=== PATIENT | female | born 1980 | race Hispanic/Latino ===

== ENCOUNTER 2016-10-24 15:05 | Emergency (ER) ==
--- NOTE | 2016-10-24 15:20 | ED EKG INTERP ---
EKG Interpretation - EKG Time of EKG reading by physician:: 15:10 EKG Read and Signed by:: Arsalan Fung EKG Interpretation (*Must complete 3 of following elements*): Normal Rate: 79 Rhythm: NSR Attestation - Scribe Verification/Attestation Scribe:: Henrietta Reed Acting as Scribe for:: Arsalan Fung Scribe documention review:: This chart was documented by a scribe and accurately reflects the service the provider performed and the decisions made by the provider.
[2016-10-24] MEDS ORDERED: TORADOL IV ONE (15:28)
[2016-10-24] MEDS ORDERED: NS 1,000 ML IV ONE (15:28)
--- NOTE | 2016-10-24 15:32 | PROVIDER DOCUMENTATION ---
HPI-Syncope/Dizziness - General Chief Complaint: Syncope Stated Complaint: SYNCOPE Time Seen by Provider: 10/24/16 15:20 Source: patient, EMS Allergies/Adverse Reactions: Patient Allergies Allergy/AdvReac Type Severity Reaction Status Date / Time No Known Allergies Allergy Verified 10/24/16 15:32 Home Medications: Home Medication List Medication Instructions Recorded Confirmed Last Taken Type No Home Medications 10/24/16 10/24/16 Unknown History - History of Present Illness-Syncope/Dizzy Nature of Presenting Problem: Pt is a 36 yof who came to the ED with a cc of syncope. Pt reports she was working at the [employer] and had eaten lunch and went back to work when she felt a sharp pain in her chest. Pt reports she started breathing faster and the chest pain got worse and she became SOB. Pt reports she passed out after having SOB. Pt states that she is no longer having trouble breathing but her chest is still tight. Onset/Duration: reports: just prior to arrival Timing: reports: improving Position/Activity at time of episode: reports: standing Symptoms prior to episode: reports: lightheaded, chest pain Current Symptoms: reports: chest pain Recently Seen Here or By Another Healthcare Provider: No Review of Systems - Adult - REVIEW OF SYSTEMS - ADULT Constitutional: denies: chills, fever Eyes: reports: no symptoms reported Ears, Nose, Mouth & Throat: denies: epistaxis, loose teeth Cardiovascular: reports: chest pain, syncope. denies: heart murmur, orthopnea Respiratory: reports: shortness of breath. denies: chronic cough, cough, wheezing Gastrointestinal: reports: no symptoms reported Genitourinary: reports: no symptoms reported Musculoskeletal: reports: no symptoms reported Integumentary: reports: no symptoms reported Neurological: reports: no symptoms reported Psychiatric: reports: no symptoms reported Endocrine: reports: no symptoms reported Hematologic/Lymphatic: reports: no symptoms reported Allergic/Immunologic: reports: no symptoms reported All Other Systems: Reviewed and Negative Past History - Adult - PAST MEDICAL HISTORY-ADULT Review of Records: reports: Old Records Reviewed, Nursing Assessment Review Major Childhood Illnesses: reports: denies history Cardiovascular: reports: denies history Respiratory: reports: denies history Gastrointestinal: reports: denies history Obstetrical/Gynecological: reports: denies history Genitourinary: reports: denies history Musculoskeletal: reports: denies history Neurological: reports: denies history Endocrine/Immune: reports: denies history Other Conditions: reports: denies history - FAMILY HISTORY Family History: reviewed, not pertinent Physical Exam-General - PHYSICAL EXAM-ADULT Initial Vital Signs Reviewed: Yes - CONSTITUTIONAL General Appearance: appears well, alert - EYES Eyes: PERRL/EOMI, pink conjunctivae - HEAD, EARS, NOSE, MOUTH & THROAT HENMT: normocephalic/atraumatic, moist mucous membranes - NECK Neck: non-tender - RESPIRATORY Respiratory: lungs clear, normal breath sounds - CHEST (BREASTS) Chest/Breast: tenderness (Left chest wall anterior tenderness) - GASTROINTESTINAL (ABDOMEN) Abdominal Exam: normal bowel sounds, non tender - MUSCULOSKELETAL Back Exam: normal inspection Extremity: normal range of motion - SKIN Integumentary: normal color, normal turgor - NEUROLOGIC Neurologic: grossly normal - PSYCHIATRIC Psych/Mental Status: normal mood/affect, normal thought content, normal thought process, oriented x 3 Progress - PLAN OF CARE/RESULTS Progress/Plan/Lab Results: Vital Signs - 24 hr 10/24/16 15:21 Temperature 97.5 F L Pulse Rate 80 Respiratory 28 H Rate Blood Pressure 105/75 O2 Sat by Pulse 100 Oximetry Orders Category Date Time Status Finger Stick Blood Sugar (ED) DIRECTED Care 10/24/16 15:22 Active Orthostatic Vital Signs NOW Care 10/24/16 15:22 Active CBC WITH ELECTRONIC DIFF [HEME] Stat Lab 10/24/16 15:23 Uncollected COMPREHENSIVE METABOLIC PANEL [CHEM] Stat Lab 10/24/16 15:23 Uncollected TEST-URINE [PREG] Stat Lab 10/24/16 15:23 Uncollected URINALYSIS [URINALYSIS] Stat Lab 10/24/16 15:23 Uncollected 0.9% Sodium Chloride Inj [Ns] 1,000 ml Med 10/24/16 15:28 Active IV 999 mls/hr Ketorolac [Toradol] Med 10/24/16 15:28 Once 30 mg IV NOW ONE EKG [EKG] Stat Ther 10/24/16 15:22 Ordered Laboratory Tests 10/24/16 10/24/16 10/24/16 15:19 15:19 15:57 WBC 9.08 RBC 4.14 L Hgb 9.8 L Hct 31.3 L MCV 75.6 L MCH 23.7 L MCHC 31.3 L RDW Std Deviation 15.8 H Plt Count 308 MPV 12.1 H Immature Gran % (Auto) 0.0 Neut % (Auto) 80.3 H Lymph % (Auto) 14.5 L [place]dwell % (Auto) 4.3 Eos % (Auto) 0.7 Baso % (Auto) 0.2 Immature Gran # (Auto) 0.00 Neut # (Auto) 7.29 H Lymph # (Auto) 1.32 Caldwell # (Auto) 0.39 Eos # (Auto) 0.06 Baso # (Auto) 0.02 Sodium 139 Potassium 3.0 L Chloride 103 Carbon Dioxide 23 L Anion Gap 13 BUN 13 Creatinine 0.6 Estimated GFR/1.73 m2 > 60 BUN/Creatinine Ratio 22 Glucose 128 H Calculated Osmolality 279 Calcium 8.8 Total Bilirubin 0.30 AST 19 ALT 13 Alkaline Phosphatase 82 Total Protein 7.3 Albumin 4.3 Globulin 3.0 Albumin/Globulin Ratio 1.4 Urine Source Urine Color Urine Turbidity Urine pH Ur Specific Gardiner Urine Protein Ur Glucose (Stick) Ur Ketones (Stick) Urine Blood Urine Nitrite Urine Bilirubin Urobilinogen Dipstick Urine Leukocytes Urine WBC (Auto) Urine RBC (Auto) U Epithel Cells (Auto) Urine Bacteria (Auto) Urine Test NEGATIVE 10/24/16 15:57 WBC RBC Hgb Hct MCV MCH MCHC RDW Std Deviation Plt Count MPV Immature Gran % (Auto) Neut % (Auto) Lymph % (Auto) Caldwell % (Auto) Eos % (Auto) Baso % (Auto) Immature Gran # (Auto) Neut # (Auto) Lymph # (Auto) Caldwell # (Auto) Eos # (Auto) Baso # (Auto) Sodium Potassium Chloride Carbon Dioxide Anion Gap BUN Creatinine Estimated GFR/1.73 m2 BUN/Creatinine Ratio Glucose Calculated Osmolality Calcium Total Bilirubin AST ALT Alkaline Phosphatase Total Protein Albumin Globulin Albumin/Globulin Ratio Urine Source VOIDED Urine Color STRAW Urine Turbidity CLEAR Urine pH 8.0 Ur Specific [place] 1.010 Urine Protein NEGATIVE Ur Glucose (Stick) NEGATIVE Ur Ketones (Stick) NEGATIVE Urine Blood NEGATIVE Urine Nitrite NEGATIVE Urine Bilirubin NEGATIVE Urobilinogen Dipstick NORMAL Urine Leukocytes NEGATIVE Urine WBC (Auto) <10 Urine RBC (Auto) <10 U Epithel Cells (Auto) <10 Urine Bacteria (Auto) 1+ Urine Test Departure - Departure Time of Disposition Order: 17:26 DIAGNOSIS: Anxiety attack Syncope Qualifiers: Syncope type: unspecified Qualified Code(s): R55 - Syncope and collapse Disposition: HOME 01 Certified Medical Emergency: Emergent Condition: Good Additional Instructions: Off work for one day ED Follow Up Instructions: You have been treated by a care provider in the Emergency Department. These instructions are being provided to you so you can have an understanding of how to care for yourself upon discharge. Upon discharge from the Emergency Department, you are responsible for making arrangements for follow-up care by a physician of your choice. Take all prescribed medications as directed. Return to the Emergency Department immediately for any new or worsening symptoms. You may call the Physician Referral phone number at [phone] to obtain a list of Physicians who are taking new patients. Attestation - Scribe Verification/Attestation Scribe:: Henrietta Reed Acting as Scribe for:: Arsalan Fung Scribe documention review:: This chart was documented by a scribe and accurately reflects the service the provider performed and the decisions made by the provider.
[2016-10-24 15:37] LABS: MANUAL DIFF NEEDED? NO
[2016-10-24 15:49] LABS: BASO% 0.2 % (0.0-0.8); EOS# 0.06 X1000 (0.0-0.7); EOS% 0.7 % (0.0-10.0); HEMATOCRIT 31.3 % (37.0-47.0); HEMOGLOBIN 9.8 g/dL (12.0-16.0); LYMPH# 1.32 X1000 (1.2-3.4); LYMPH% 14.5 % (20.5-51.1); MCH 23.7 PG (27-31); MCHC 31.3 g/dL (33-37); MCV 75.6 FL (81-99); MONO# 0.39 X1000 (0.11-0.59); MONO% 4.3 % (1.7-9.3); MPV 12.1 FL (7.4-10.4); NEUT% 80.3 % (42.2-75.2); PLT 308 X1000 (130-400); RBC 4.14 XMIL (4.2-5.4)
[2016-10-24 16:00] LABS: AGAP 13; ALBUMIN 4.3 g/dL (3.5-5.0); ALKALINE PHOSPHATASE 82 U/L (32-104); BUN 13 mg/dL (8-22); CALCIUM 8.8 mg/dL (8.8-10.2); CHLORIDE 103 mmol/L (98-107); COSMO 279; GOT 19 U/L (10-30); GPT 13 U/L (10-36); SODIUM 139 mmol/L (136-145); TCO2 23 mmol/L (25-35); TOTAL PROTEIN 7.3 g/dL (6.3-8.3)
[2016-10-24 16:22] LABS: URINE MICRO REVIEW NEEDED? NO; URINE SOURCE VOIDED
[2016-10-24 16:34] LABS: BILIRUBIN URINE NEGATIVE (NEGATIVE); BLOOD URINE NEGATIVE (NEGATIVE); COLOR STRAW; GLUCOSE URINE NEGATIVE (NEGATIVE); LEUKOCYTES URINE NEGATIVE (NEGATIVE); NITRITE URINE NEGATIVE (NEGATIVE); PROTEIN URINE NEGATIVE (NEGATIVE); TURBIDITY URINE CLEAR (CLEAR); UROBILINOGEN URINE NORMAL (NORMAL)
[2016-10-24 16:35] LABS: UR EPITHELIAL CELLS <10 /HPF (<10); URINE BACTERIA 1+ /HPF; URINE RBC <10 /HPF (<10); URINE WBC <10 /HPF (<10)
[2016-10-24 18:08] VITALS: BP 123/71
--- NOTE | 2016-10-25 05:22 | EKG Report ---
Test Performed on : 10/24/2016 3:10:44 PM Test Reason : CP Blood Pressure : / mmHG Vent. Rate : 079 BPM Atrial Rate : 079 BPM P-R Int : 128 ms QRS Dur : 084 ms QT Int : 390 ms P-R-T Axes : 064 081 059 degrees QTc Int : 447 ms Normal sinus rhythm. Normal ECG No previous ECGs available Unconfirmed Result
== END 2016-10-24 18:07 | disposition home or self-care (01) ==
LOC: EDBD → ED 15:05
DX: R55 Syncope and collapse (principal); F41.9 Anxiety disorder, unspecified; R07.89 Other chest pain; R06.02 Shortness of breath; R42 Dizziness and giddiness
CPT/HCPCS: 80053; 81001; 81025; 82948; 85025; 93005; J1885; J7030